=== PATIENT | female | born 1975 | race American Indian/Alaskan Native ===

== ENCOUNTER 2018-01-01 15:06 | Emergency (ER) | payer OTHER ==
[2018-01-01 15:46] VITALS: BP 156/82
[2018-01-01] MEDS ORDERED: ULTRAM PO ONE (17:59)
--- NOTE | 2018-01-01 18:11 | Emergency Department Report ---
ED General Adult HPI - General Chief complaint: Dizziness Stated complaint: SYNCOPY Time Seen by Provider: 01/01/18 15:50 Source: patient, EMS Mode of arrival: Stretcher Limitations: No Limitations - History of Present Illness Initial comments: Ms. Hyde is a 42-year-old female with history of insulin-dependent diabetes, hypertension, pulmonary embolism dysmenorrhea presents with severe menstrual cramps and near syncope. She had the gradual onset of menstrual cramps. Her menstrual began today. She then felt flushed. She felt as if she was going to pass out. She felt as if she was hyperventilating. She did not pass out. Her coworkers called EMS. She's had previous history of dysmenorrhea. Her PCP has prescribed tramadol in the past for severe menstrual cramps. She had pulmonary embolism in 2005 or 2006. She has not been on anticoagulation. She denies chest pain. Denies leg pain. She is not taking oral contraceptive therapy. -: Gradual Location: abdomen Severity scale (0 -10): 5 Quality: aching Consistency: constant Associated Symptoms: shortness of breath. denies: chest pain, cough, loss of appetite, malaise, nausea/vomiting, syncope - Related Data Home Medications Medication Instructions Recorded Confirmed Last Taken Aspirin [Lo-Dose Aspirin EC] 81 mg PO DAILY 10/07/17 10/07/17 Unknown Previous Rx's Medication Instructions Recorded Last Taken Type Empagliflozin [Jardiance] 10 mg PO DAILY #30 tablet 10/09/17 Unknown Rx HYDROcodone/APAP 7.5-325 [Ransom 1 each PO Q6HR PRN #18 tablet 10/09/17 Unknown Rx 7.5-325 mg TAB] Insulin Lispro [Humalog Kwikpen 10 unit SQ AC #1 insuln.pen 10/09/17 Unknown Rx 200 UNITS/ML] Lisinopril [Zestril TAB] 40 mg PO QDAY #30 tablet 10/09/17 Unknown Rx Lispro Insulin [Humalog] 15 unit SUB-Q AC #300 units 10/09/17 Unknown Rx Pravastatin [Pravachol] 20 mg PO QHS #30 tablet 10/09/17 Unknown Rx traMADol [Ultram 50 MG tab] 50 mg PO Q4HR PRN #10 tablet 01/01/18 Unknown Rx Allergies Allergy/AdvReac Type Severity Reaction Status Date / Time No Known Allergies Allergy Unverified 04/01/13 11:06 ED Review of Systems ROS: Stated complaint: SYNCOPY Other details as noted in HPI Comment: All other systems reviewed and negative Constitutional: denies: fever, malaise Respiratory: denies: cough Cardiovascular: denies: chest pain ED Past Medical Hx - Past Medical History Hx Hypertension: Yes Hx Heart Attack/AMI: No Hx Congestive Heart Failure: No Hx Diabetes: Yes Hx Liver Disease: No Hx Renal Disease: (Acute renal,now resolved) Hx Sickle Cell Disease: No Hx Seizures: No Hx Asthma: No Hx COPD: No Hx HIV: No Additional medical history: PE - Surgical History Hx Pacemaker: No Hx Internal Defibrillator: No - Family History Family history: no significant - Social History Smoking Status: Never Smoker Substance Use Type: None - Medications Home Medications: Home Medications Medication Instructions Recorded Confirmed Last Taken Type Aspirin [Lo-Dose Aspirin EC] 81 mg PO DAILY 10/07/17 10/07/17 Unknown History Empagliflozin [Jardiance] 10 mg PO DAILY #30 tablet 10/09/17 Unknown Rx HYDROcodone/APAP 7.5-325 [Ransom 1 each PO Q6HR PRN #18 tablet 10/09/17 Unknown Rx 7.5-325 mg TAB] Insulin Lispro [Humalog Kwikpen 10 unit SQ AC #1 insuln.pen 10/09/17 Unknown Rx 200 UNITS/ML] Lisinopril [Zestril TAB] 40 mg PO QDAY #30 tablet 10/09/17 Unknown Rx Lispro Insulin [Humalog] 15 unit SUB-Q AC #300 units 10/09/17 Unknown Rx Pravastatin [Pravachol] 20 mg PO QHS #30 tablet 10/09/17 Unknown Rx traMADol [Ultram 50 MG tab] 50 mg PO Q4HR PRN #10 tablet 01/01/18 Unknown Rx ED Physical Exam - General Limitations: No Limitations General appearance: alert, in no apparent distress - Head Head exam: Present: atraumatic, normocephalic - Eye Eye exam: Present: normal appearance - ENT ENT exam: Present: mucous membranes moist - Neck Neck exam: Present: normal inspection. Absent: tenderness, meningismus - Respiratory Respiratory exam: Present: normal lung sounds bilaterally. Absent: respiratory distress, wheezes, rales, rhonchi - Cardiovascular Cardiovascular Exam: Present: regular rate, normal rhythm, normal heart sounds. Absent: systolic murmur, diastolic murmur, rubs, gallop - GI/Abdominal GI/Abdominal exam: Present: soft, normal bowel sounds. Absent: distended, tenderness, guarding, rebound - Extremities Exam Extremities exam: Present: normal inspection - Back Exam Back exam: Present: normal inspection - Neurological Exam Neurological exam: Present: alert, oriented X3 - Psychiatric Psychiatric exam: Present: normal affect, normal mood - Skin Skin exam: Present: warm, dry, intact, normal color. Absent: rash ED Course Vital Signs 01/01/18 15:41 Temperature 98.3 F Pulse Rate 77 Respiratory 18 Rate Blood Pressure 156/82 O2 Sat by Pulse 99 Oximetry ED Medical Decision Making - EKG Data EKG shows normal: sinus rhythm, axis, intervals, QRS complexes, ST-T waves Rate: normal - EKG Data Interpretation: no acute changes, normal EKG - Medical Decision Making Ms. Hyde presents with dysmenorrhea and near syncope due to vagal reaction. I do not suspect arrhythmia. I do not suspect PE. I do not suspect ACS. She denies any shortness of breath at this time. She did not have chest pain or syncope today. Discharged home with prescription for tramadol Critical care attestation.: If time is entered above; I have spent that time in minutes in the direct care of this critically ill patient, excluding procedure time. ED Disposition Clinical Impression: Dysmenorrhea, Near syncope Disposition: - TO HOME OR SELFCARE Is pt being admited?: No Does the pt Need Aspirin: No Condition: Stable Instructions: Near Syncope (ED), Dysmenorrhea (ED) Prescriptions: traMADol [Ultram 50 MG tab] 50 mg PO Q4HR PRN #10 tablet PRN Reason: Pain Forms: Work/School Release Form(ED) Time of Disposition: 18:14
== END 2018-01-01 18:22 | disposition home or self-care (01) ==
LOC: ED 15:06
DX: N94.6 Dysmenorrhea, unspecified (principal); R55 Syncope and collapse; I10 Essential (primary) hypertension; E11.9 Type 2 diabetes mellitus without complications; Z79.82 Long term (current) use of aspirin
CPT/HCPCS: 93005; 93010; 99283